=== PATIENT | male | born 1965 | race Caucasian/White ===

== ENCOUNTER → 2016-09-22 | Outpatient (CLI) | payer MEDICARE ==
[~2016-09-22] MED LIST: ATORVASTATIN CA10 MG PO; LISINOPRIL5 MG PO; OMEPRAZOLE40 M1 PO; SERTRALINE HCL100 MG; SERTRALINE HCL100 MG PO
--- NOTE | ~2016-09-22 | CT114 ---
[facility] A Service of [facility] & [facility] RADIOLOGY TEXT RESULTS PATIENT: PAVITHRA MORALES LOCATION: [facility] : 61 UNIT #: [id number] AGE: [address]: Quyen Garcia MD SEX: M ORDER DR: [id number] [place] [address] [id number] O MR#: [id number] Acc #: [id number] NAME: PAVITHRA MORALES : 1965 SEX: M STUDY DATE/TIME: 09/22/2016 11:40 UNIT: [facility] ROOM: STUDY DESCRIPTION: CT Soft Tissue Neck W Cont Attending Physician: Quyen Garcia M.D. Referring Physician: Quyen Garcia M.D. Ordering Physician: Quyen Garcia M.D. Primary Care Physician: Berenice Allen M.D. MEDICAL IMAGING REPORT This report is preliminary unless electronic signature is present. EXAM Soft tissue neck CT with contrast, 09/22/2016. PROCEDURE Axial contrast-enhanced soft tissue neck CT with multiplanar reformats. This CT exam was performed with one or more of the following radiation dose reduction techniques: automatic exposure control, adjustment of mA and/or kV according to patient size, and iterative reconstruction. COMPARISON STUDIES 05/19/2016 HISTORY No new symptoms; routine follow-up of B-Cell lymphoma. FINDINGS Overall minimally prominent fairly symmetric cervical lymph nodes are seen, mostly unchanged since the prior exam. 2 upper cervical lymph nodes are clearly slightly larger than on the prior study, 1 in the right level 2, now 1.7 x 1.7 x 2.1 cm, compared to 1.3 x 1.4 x 1.8 cm in May 2016, and 1 left level 5-A measuring 1.5 x 1.8 x 2.0 cm, compared to 1.4 x 1.6 x 1.6 cm previously. No additional discrete conspicuous lymph nodes are seen. There is spinal degenerative change, but no bone erosion or destruction, and there is fusion at C5-C6. The vascular structures are remarkable for some slight plaque in the left carotid bifurcation, though probably no more than 10% stenosis by NASCET criteria, with 0% stenosis on the right, though the study is not optimized for that evaluation. IMPRESSION Mostly stable symmetric small cervical lymph nodes. 2 lymph nodes, 1 in STS. [facility] A Service of [facility] RADIOLOGY TEXT RESULTS PATIENT: PAVITHRA MORALES LOCATION: [facility] : 61 UNIT #: [id number] AGE: [address]: Quyen Garcia MD SEX: M ORDER DR: the right level 2 and 1 in the left level 5-A are both slightly larger than on the study of May 2016. No other interval change. Dictated by... Wale Petit M.D. THIS IS AN ELECTRONICALLY VERIFIED REPORT Wale Petit M.D. at 09/25/2016 1:52 PM SANDEEP/steffanie TD: 09/23/2016 14:01 JOB #: [id number] MEDICAL IMAGING REPORT Page 1 of 1
--- NOTE | ~2016-09-22 | CT55 ---
[facility] A Service of [facility] RADIOLOGY TEXT RESULTS PATIENT: PAVITHRA MORALES LOCATION: [facility] : 61 UNIT #: [id number] AGE: [address]: Quyen Garcia MD SEX: M ORDER DR: [id number] [place] [address] [id number] O MR#: [id number] [facility] #: [id number] NAME: PAVITHRA MORALES : 1965 SEX: M STUDY DATE/TIME: 09/22/2016 11:01 UNIT: [facility] ROOM: STUDY DESCRIPTION: CT Chest W Con Attending Physician: Quyen Garcia M.D. Referring Physician: Quyen Garcia M.D. Ordering Physician: Quyen Garcia M.D. Primary Care Physician: Berenice Allen M.D. MEDICAL IMAGING REPORT This report is preliminary unless electronic signature is present. EXAM CT chest with contrast. INDICATIONS Restaging B-cell lymphoma. Observation for disease progression of response to therapy. PROCEDURE Contrast-enhanced CT of the chest, 100 mL of Isovue-370. This CT exam was performed with one or more of the following radiation dose reduction techniques: automatic exposure control, adjustment of mA and/or kV according to patient size, and iterative reconstruction. COMPARISON 05/19/2016. FINDINGS Lungs are predominately clear. Cardiomegaly. No pathologically enlarged hilar or mediastinal nodes. Prominent right axillary nodes with a dominant node measuring 3.1 x 1.8 cm, previously 4.0 x 2.3 cm. Mildly prominent left axillary nodes, with an index node measuring 1.6 x 1.1 cm, previously 2.3 x 1.6 cm. No aggressive appearing bone lesion. IMPRESSION 1. Persistent but improving prominent bilateral axillary adenopathy, right greater than left. 2. No new or enlarging adenopathy in the chest. Dictated by... Jarod Leary M.D. [facility] A Service of [facility] & [facility] RADIOLOGY TEXT RESULTS PATIENT: PAVITHRA MORALES LOCATION: [facility] : 61 UNIT #: [id number] AGE: [address]: Quyen Garcia MD SEX: M ORDER DR: THIS IS AN ELECTRONICALLY VERIFIED REPORT Jarod Leary M.D. at 09/23/2016 10:02 AM ANUP/bladimir TD: 09/22/2016 16:15 JOB #: [id number] MEDICAL IMAGING REPORT Page 1 of 1
--- NOTE | ~2016-09-22 | CT5 ---
[facility]. [facility] A Service [facility] RADIOLOGY TEXT RESULTS PATIENT: PAVITHRA MORALES LOCATION: [facility] : 61 UNIT #: [id number] AGE: [address]: Quyen Garcia MD SEX: M ORDER DR: [id number] [place] [address] [id number] O MR#: [id number] Acc #: [id number] NAME: PAVITHRA MORALES : 1965 SEX: M STUDY DATE/TIME: 09/22/2016 11:01 UNIT: [facility] ROOM: STUDY DESCRIPTION: CT Abdomen W Cont Attending Physician: Quyen Garcia M.D. Referring Physician: Quyen Garcia M.D. Ordering Physician: Quyen Garcia M.D. Primary Care Physician: Berenice Allen M.D. MEDICAL IMAGING REPORT This report is preliminary unless electronic signature is present. EXAM CT abdomen with contrast 09/22/2016 INDICATIONS Restaging B-cell lymphoma. Observation for response to therapy and disease progression. PROCEDURE Contrast-enhanced CT of the abdomen. This CT exam was performed with one or more of the following radiation dose reduction techniques: automatic exposure control, adjustment of mA and/or kV according to patient size, and iterative reconstruction. COMPARISON 05/19/2016 FINDINGS Refer to separately dictated chest CT for thoracic findings. Liver, spleen, adrenal glands, pancreas, gallbladder unremarkable. Right common iliac node measures 1.6 x 0.8 cm not significantly changed from the prior. There is a partially included prominent node at the bifurcation of the right internal and external iliac vessels that measures approximately 2.0 x 3.2 cm, also not significantly changed from the prior. No appreciable new or enlarging adenopathy is seen in the abdomen. No aggressive appearing bone lesion. IMPRESSION 1. No new or enlarging adenopathy in the abdomen. 2. A right common iliac node and a partially included node at the iliac bifurcation, are stable. [facility] A Service [facility] RADIOLOGY TEXT RESULTS PATIENT: PAVITHRA MORALES LOCATION: [facility] : 61 UNIT #: [id number] AGE: [address]: Quyen Garcia MD SEX: M ORDER DR: Dictated by... Jarod Leary M.D. THIS IS AN ELECTRONICALLY VERIFIED REPORT Jarod Leary M.D. at 09/23/2016 10:02 AM ANUP/souleymane TD: 09/22/2016 16:15 JOB #: [id number] MEDICAL IMAGING REPORT Page 1 of 1
[2016-09-22 13:35] LABS: POC - CREATININE 0.92 mg/dL (0.64-1.27); POC - GFR >60.0 mL/min (>60)
== END | disposition home or self-care (01) ==
LOC: SCT 10:50
PROVIDERS: Internal Medicine Hematology
DX: C85.18 Unspecified B-cell lymphoma, lymph nodes of multiple sites (principal); R22.31 Localized swelling, mass and lump, right upper limb; R59.0 Localized enlarged lymph nodes
CPT/HCPCS: 70491; 71260; 74160; 82565; Q9967

== ENCOUNTER → 2017-01-26 | Outpatient (CLI) | payer MEDICARE ==
--- NOTE | ~2017-01-26 | CT2 ---
[facility]. [facility] A Service of [facility] & [facility] RADIOLOGY TEXT RESULTS PATIENT: PAVITHRA MORALES LOCATION: [facility] : 61 UNIT #: [id number] AGE: [address]: Quyen Garcia MD SEX: M ORDER DR: [id number] [place] [id number] O MR#: [id number] Acc #: [id number] NAME: PAVITHRA MORALES : 1965 SEX: M STUDY DATE/TIME: 01/26/2017 12:34 UNIT: [facility] ROOM: STUDY DESCRIPTION: CT Abd and Pelv W Cont Attending Physician: Quyen Garcia M.D. Referring Physician: Quyen Garcia M.D. Ordering Physician: Quyen Garcia M.D. Primary Care Physician: Berenice Allen M.D. MEDICAL IMAGING REPORT This report is preliminary unless electronic signature is present. EXAM CT abdomen and pelvis with contrast INDICATIONS Palpable right groin mass, intermittently over the past several months. B-cell lymphoma, followup. Observation for disease progression. PROCEDURE Contrast-enhanced CT abdomen and pelvis. This CT exam was performed with one or more of the following radiation dose reduction techniques: automatic exposure control, adjustment of mA and/or kV according to patient size, and iterative reconstruction. COMPARISON 09/22/2016 FINDINGS Refer to separately dictated chest CT for thoracic findings. The liver enlarged measuring 19.8 cm. No liver or splenic mass. Spleen is normal in size. The adrenal glands, pancreas, gallbladder show no acute abnormality. No focal renal lesion. There is moderate bilateral perinephric stranding unchanged from the prior. Moderate colonic stool burden. Bowel loops nondilated. No pathologically enlarged abdominal lymph nodes. Pelvis with contrast: There are a few mildly prominent right and left pelvic nodes. The right iliac chain node measures 2.7 cm. It previously measured up to 3.2 cm. No pathologically enlarged inguinal lymph nodes. No aggressive appearing bone lesion. IMPRESSION 1. No evidence for disease progression in the abdomen or pelvis. No pathologically enlarged abdominal nodes and index pelvic nodes are STS. [facility] A Service of [facility] & [facility] RADIOLOGY TEXT RESULTS PATIENT: PAVITHRA MORALES LOCATION: [facility] : 61 UNIT #: [id number] AGE: [address]: Quyen Garcia MD SEX: M ORDER DR: minimally smaller. 2. No pathologically enlarged right or left inguinal adenopathy. 3. Hepatomegaly. 4. Refer to separately dictated chest CT for thoracic findings. Dictated by... Jarod Leary M.D. THIS IS AN ELECTRONICALLY VERIFIED REPORT Jarod Leary M.D. at 01/27/2017 8:29 AM EED/to TD: 01/26/2017 22:26 JOB #: [id number] MEDICAL IMAGING REPORT Page 1 of 1
--- NOTE | ~2017-01-26 | CT114 ---
[facility] A Service of [facility] & [facility] RADIOLOGY TEXT RESULTS PATIENT: PAVITHRA MORALES LOCATION: [facility] : 61 UNIT #: [id number] AGE: [address]: Quyen Garcia MD SEX: M ORDER DR: [id number] [address] [address] [id number] O MR#: [id number] Acc #: [id number] NAME: PAVITHRA MORALES : 1965 SEX: M STUDY DATE/TIME: 01/26/2017 12:34 UNIT: [facility] ROOM: STUDY DESCRIPTION: CT Soft Tissue Neck W Cont Attending Physician: Quyen Garcia M.D. Referring Physician: Quyen Garcia M.D. Ordering Physician: Quyen Garcia M.D. Primary Care Physician: Berenice Allen M.D. MEDICAL IMAGING REPORT This report is preliminary unless electronic signature is present. EXAM Neck CT with contrast HISTORY B-cell lymphoma. Patient diagnosed 1 year ago. Evaluate for cervical adenopathy suspected. TECHNIQUE Axial images were obtained from the skull base to the upper mediastinum with contrast. 100 mL of Isovue was used. The study is compared to a previous CT scan dated 09/22/[address] exam was performed with one or more of the following radiation dose reduction techniques: automatic exposure control, adjustment of mA and/or kV according to patient size, and iterative reconstruction. FINDINGS The skull base, parapharyngeal spaces and pharyngeal mucosal surfaces have a normal appearance. The parotid and submandibular glands are symmetric. Bilateral cervical adenopathy is again noted. Numerous prominent but small bilateral cervical nodes are stable. Of the larger nodes, the largest is located just anterior to the right submandibular gland and it is slightly larger since the previous examination. It now measures 2.3 x 2.7 cm compared with 1.9 x 2.6 cm on the previous exam. A level II node on the right just in front of the internal jugular vein measures essentially unchanged at 1.9 cm, a node deep to the sternocleidomastoid muscle on the left measures slightly smaller. On the previous study, it measured 1.4 x 1.8 cm and now measures 1.3 x 1.6 cm. No new adenopathy is seen. No acute or inflammatory changes are seen in the neck. No enlarged nodes are seen in the upper mediastinum. IMPRESSION [facility] A Service of [facility] & [facility] RADIOLOGY TEXT RESULTS PATIENT: PAVITHRA MORALES LOCATION: [facility] : 61 UNIT #: [id number] AGE: [address]: Quyen Garcia MD SEX: M ORDER DR: Bilateral cervical adenopathy. No significant change since the previous examination. The right submandibular node is slightly larger. A node deep to the sternocleidomastoid on the left is perhaps slightly smaller. Most of the nodes are entirely stable when compared to the previous examination. Dictated by... Murphy Chase M.D. THIS IS AN ELECTRONICALLY VERIFIED REPORT Murphy Chase M.D. at 01/29/2017 3:40 PM Germán TD: 01/28/2017 11:32 JOB #: [id number] MEDICAL IMAGING REPORT Page 1 of 1
--- NOTE | ~2017-01-26 | CT55 ---
[facility] A Service [facility] RADIOLOGY TEXT RESULTS PATIENT: PAVITHRA MORALES LOCATION: [facility] : 61 UNIT #: [id number] AGE: [address]: Quyen Garcia MD SEX: M ORDER DR: [id number] [place] [address] [id number] O MR#: [id number] Acc #: [id number] NAME: PAVITHRA MORALES : 1965 SEX: M STUDY DATE/TIME: 01/26/2017 12:34 UNIT: [facility] ROOM: STUDY DESCRIPTION: CT Chest W Con Attending Physician: Quyen Garcia M.D. Referring Physician: Quyen Garcia M.D. Ordering Physician: Quyen Garcia M.D. Primary Care Physician: Berenice Allen M.D. MEDICAL IMAGING REPORT This report is preliminary unless electronic signature is present. EXAM CT chest with contrast INDICATIONS Restaging B-cell lymphoma. Observation for disease progression. PROCEDURE Contrast-enhanced CT chest. COMPARISON STUDIES 09/22/[address] exam was performed with one or more of the following radiation dose reduction techniques: automatic exposure control, adjustment of mA and/or kV according to patient size, and iterative reconstruction. FINDINGS Bilateral prominent axillary lymph nodes. The index right axillary lymph node measures 3.0 x 1.7 cm previously 3.1 x 1.8 cm. No enlarging axillary adenopathy. No new or enlarging mediastinal adenopathy. Cardiomegaly. No dense consolidation or suspicious pulmonary nodule. No aggressive appearing bone lesion. IMPRESSION no evidence for disease progression. Stable bilateral axillary adenopathy. Dictated by... Jarod Leary M.D. [facility] A Service [facility] RADIOLOGY TEXT RESULTS PATIENT: PAVITHRA MORALES LOCATION: [facility] : 61 UNIT #: [id number] AGE: [address]: Quyen Garcia MD SEX: M ORDER DR: THIS IS AN ELECTRONICALLY VERIFIED REPORT Jarod Leary M.D. at 01/27/2017 8:28 AM ANUP/marybeth TD: 01/26/2017 23:02 JOB #: [id number] MEDICAL IMAGING REPORT Page 1 of 1
[2017-01-26 12:20] LABS: POC - CREATININE 1.01 mg/dL (0.64-1.27); POC - GFR >60.0 mL/min (>60)
== END | disposition home or self-care (01) ==
LOC: SCT 11:48
PROVIDERS: Internal Medicine Hematology
DX: C85.18 Unspecified B-cell lymphoma, lymph nodes of multiple sites (principal); R22.31 Localized swelling, mass and lump, right upper limb; R16.0 Hepatomegaly, not elsewhere classified; R59.0 Localized enlarged lymph nodes
CPT/HCPCS: 70491; 71260; 74177; 82565; Q9967